=== PATIENT | female | born 1985 | race Caucasian/White ===

== ENCOUNTER 2022-01-18 17:49 | Day surgery (SDC) | payer BC ==
[2022-01-18 18:29] VITALS: BMI 37.0
[2022-01-18 19:52] LABS: Fetal Membranes Rupture No Membranes Rupture (No Rupture)
[2022-01-18] MEDS ORDERED: hydrALAZINE 20 MG/ML VIAL SLOW IVP PRN (19:57)
== END 2022-01-18 20:15 | disposition home or self-care (01) ==
LOC: CSHLD/OP 17:49
PROVIDERS: ATTEND Obstetrics & Gynecology
DX: O99.891 Other specified diseases and conditions complicating pregnancy (principal); N89.8 Other specified noninflammatory disorders of vagina; Z3A.37 37 weeks gestation of pregnancy; Z90.49 Acquired absence of other specified parts of digestive tract; Z98.890 Other specified postprocedural states
CPT/HCPCS: 84112; 99283

== ENCOUNTER 2022-01-28 06:00 | Inpatient (IN) | payer BC ==
[2022-01-29 01:48] VITALS: BMI 37.9
[2022-01-29] MEDS: Lactated Ringer's 1,000 ML IV SCH ×3 (02:00→22:14)
[2022-01-29] MEDS ORDERED: Acetaminophen 500 MG TAB PO PRN (02:15)
[2022-01-29] MEDS ORDERED: Butorphanol Tartrate 1 MG/ML VIAL SLOW IVP PRN (02:15)
[2022-01-29] MEDS ORDERED: hydrALAZINE 20 MG/ML VIAL SLOW IVP PRN ×2 (02:15→17:04)
[2022-01-29] MEDS ORDERED: NS w/ Oxytocin 30 units 500 ML IV SCH ×3 (02:15→17:15)
[2022-01-29] MEDS ORDERED: HYDROcodone/Acetaminophen 5/325 mg Tablet PO PRN ×4 (02:15→21:30)
[2022-01-29] MEDS ORDERED: Misoprostol 200 MCG TAB PR PRN (02:15)
[2022-01-29] MEDS ORDERED: Ondansetron PF 4 MG/2 ML Vial IVP PRN ×3 (02:15→17:04)
[2022-01-29] MEDS ORDERED: Diphenoxylate HCl/Atropine Tablet PO PRN ×2 (02:15)
[2022-01-29] MEDS ORDERED: Docusate 100 MG CAP PO PRN (02:15)
[2022-01-29] MEDS ORDERED: Ibuprofen 800 MG TAB PO PRN (02:15)
[2022-01-29] MEDS ORDERED: Lidocaine 1% (PF) 30 ML VIAL SC PRN (02:15)
[2022-01-29] MEDS ORDERED: Promethazine HCl 25 MG/ML VIAL IM PRN ×2 (02:15→04:05)
[2022-01-29] MEDS ORDERED: Penicillin G Potassium 5 MILL.UNITS in Sodium Chloride 0.9% 100 ML IVPB SCH (02:15)
[2022-01-29 03:06] LABS: Hemoglobin 11.2 g/dL (12.0-15.5); Mean Corpuscular HGB CONC 33.8 g/dL (32.0-36.0); Mean Corpuscular Hemoglobin 29.2 pg (27.0-33.0); Mean Corpuscular Volume 86.2 fl (81.6-98.3); Mean Platelet Volume 10.3 fl (7.4-10.4); Platelet Count 204 10x3/uL (150-450); Red Blood Cell (RBC) Count 3.84 10x6/uL (3.90-5.03); White Blood Cell (WBC) Count 11.8 10x3/uL (3.5-10.5)
[2022-01-29] MEDS ORDERED: Fentanyl 2 mcg/Bup 0.1% Cadd 100 ML ONE ×2 (03:11→16:15)
[2022-01-29 03:41] LABS: HBSAg Index 0.41 S/CO (0-0.99); HIV (1/2) Antibody/Antigen Non-Reactive (NonReactive); HIV 1/2 INDEX 0.06 S/CO (<1.00); Hep B Surf Ag Non-Reactive S/CO (NonReactive)
[2022-01-29 03:42] LABS: Syphilis Antibody Nonreactive (Nonreactive); Syphilis Antibody Index 0.07 S/CO (<1.00 Non-Reactive)
[2022-01-29] MEDS ORDERED: Acetaminophen 325 MG TAB PO PRN (04:05)
[2022-01-29] MEDS ORDERED: Naloxone HCl 0.4 mg/ml Vial IVP PRN ×2 (04:05)
[2022-01-29] MEDS ORDERED: Moisturizing Cream (Eucerin) 113 GM JAR TOP PRN (04:05)
[2022-01-29] MEDS ORDERED: ePHEDrine Sulfate 50 MG/10 ML VIAL SLOW IVP PRN (04:05)
[2022-01-29] MEDS ORDERED: Lactated Ringer's 500 ML IV PRN (04:05)
[2022-01-29] MEDS ORDERED: diphenhydrAMINE 50 MG/ML VIAL IVP PRN (04:05)
[2022-01-29] MEDS ORDERED: Communication Order-Pharmacy FS SCH (04:15)
[2022-01-29] MEDS ORDERED: Fentanyl 2 mcg/Bupivacaine 0.1% Cassette 100 ML EPIDURAL SCH (04:15)
[2022-01-29 05:04] LABS: SARS-CoV-2 NAA Rapid Test Not Detected (NotDetected)
[2022-01-29] MEDS: Penicillin G 2.5 MILL.units 2.5 MILL.UNITS in Premix Bag 1 BAG IVPB SCH ×3 (06:41→22:14)
[2022-01-29] MEDS ORDERED: Bupivacaine 0.25% HCL 30 ML VIAL ONE (08:00)
[2022-01-29] MEDS ORDERED: Tranexamic Acid 1,000 MG/10 ML VIAL ONE (10:56)
[2022-01-29] MEDS ORDERED: Carboprost 250 MCG/ML AMP ONE (10:56)
[2022-01-29] MEDS ORDERED: Misoprostol 200 MCG TAB ONE (10:56)
[2022-01-29] MEDS ORDERED: Fentanyl 100 MCG/2 ML VIAL ONE ×2 (12:33→16:24)
[2022-01-29] MEDS ORDERED: Misoprostol 200 MCG TAB VAG PRN (17:04)
[2022-01-29] MEDS ORDERED: Benzocaine-Menthol 82.5 ML CAN TOP PRN (17:04)
[2022-01-29] MEDS ORDERED: Lanolin Ointment 7 GM TUBE TOP PRN (17:04)
[2022-01-29] MEDS ORDERED: diphenhydrAMINE 25 MG CAP PO PRN (17:04)
[2022-01-29] MEDS ORDERED: Milk Of Magnesia 30 ML UDCUP PO PRN (17:04)
[2022-01-29] MEDS ORDERED: Preparation H Ointment 28 GM TUBE PR PRN (17:04)
[2022-01-29] MEDS ORDERED: Bisacodyl 10 MG SUPP PR PRN (17:04)
[2022-01-29] MEDS ORDERED: Boostrix 0.5 ML (Tdap) VIAL (>/=7 yrs of age) IM ONE (17:04)
[2022-01-29] MEDS ORDERED: Zolpidem Tartrate 5 MG TAB PO PRN (21:00)
[2022-01-29] MEDS: Ibuprofen 800 MG TAB PO SCH (21:43)
[2022-01-29] MEDS: Docusate 100 MG CAP PO SCH (21:43)
[2022-01-30 04:28] LABS: Hemoglobin 9.3 g/dL (12.0-15.5); Mean Corpuscular HGB CONC 33.6 g/dL (32.0-36.0); Mean Corpuscular Hemoglobin 29.3 pg (27.0-33.0); Mean Corpuscular Volume 87.4 fl (81.6-98.3); Mean Platelet Volume 10.1 fl (7.4-10.4); Platelet Count 189 10x3/uL (150-450); RBC Distribution Width 15.8 % (11.5-14.5); Red Blood Cell (RBC) Count 3.17 10x6/uL (3.90-5.03); White Blood Cell (WBC) Count 14.3 10x3/uL (3.5-10.5)
[2022-01-30] MEDS: Ibuprofen 800 MG TAB PO SCH ×3 (05:51→21:03)
[2022-01-30] MEDS: Docusate 100 MG CAP PO SCH ×2 (08:28→21:03)
[2022-01-30] MEDS: Prenatal Vitamin 1 TAB PO SCH (08:28)
[2022-01-30] MEDS: Ferrous Sulfate 325 MG TAB PO SCH ×2 (08:29→18:26)
[2022-01-31] MEDS: Ibuprofen 800 MG TAB PO SCH ×2 (06:04→13:43)
[2022-01-31] MEDS: Prenatal Vitamin 1 TAB PO SCH (08:32)
[2022-01-31] MEDS: Ferrous Sulfate 325 MG TAB PO SCH ×2 (08:32→18:45)
[2022-01-31] MEDS: Docusate 100 MG CAP PO SCH (08:32)
[2022-01-31 09:25] VITALS: BP 129/63; TEMP 98.1
== END 2022-01-31 19:40 | disposition home or self-care (01) | DRG 806 ==
LOC: CSHLD 01-29 01:01 → CSHPP 01-29 21:14
PROVIDERS: ADMIT Obstetrics & Gynecology; ATTEND Obstetrics & Gynecology
PROC: 10E0XZZ Delivery of Products of Conception, External Approach (ICD-10-PCS; principal; 2022-01-28)
PROC: 3E033VJ Introduction of Other Hormone into Peripheral Vein, Percutaneous Approach (ICD-10-PCS; 2022-01-28)
PROC: 10907ZC Drainage of Amniotic Fluid, Therapeutic from Products of Conception, Via Natural or Artificial Opening (ICD-10-PCS; 2022-01-28)
DX: O36.63X0 Maternal care for excessive fetal growth, third trimester, not applicable or unspecified (principal); O99.354 Diseases of the nervous system complicating childbirth; Z37.0 Single live birth; O99.824 Streptococcus B carrier state complicating childbirth; Z3A.39 39 weeks gestation of pregnancy; Z20.822 Contact with and (suspected) exposure to COVID-19; G43.909 Migraine, unspecified, not intractable, without status migrainosus; F41.9 Anxiety disorder, unspecified; F32.A Depression, unspecified; O99.344 Other mental disorders complicating childbirth; D64.9 Anemia, unspecified; O99.02 Anemia complicating childbirth; Z90.49 Acquired absence of other specified parts of digestive tract; Z79.899 Other long term (current) drug therapy; Z91.013 Allergy to seafood
CPT/HCPCS: 36415; 51702; 85027; 86780; 86850; 86900; 86901; 87340; 87389; J1200; J2405; J2540; J3490; J7120; S0020; U0002